=== PATIENT | male | born 1945 | race Caucasian/White ===

== ENCOUNTER 2018-06-13 06:43 | Day surgery (SDC) | payer MEDICARE ==
[~2018-06-13] VITALS: Ht 182.9 cm; Wt 102.1 kg
[2018-06-13 08:29] VITALS: BP 119/60
== END 2018-06-13 08:45 | disposition home or self-care (01) ==
LOC: ENDO 06:43
PROVIDERS: ATTEND Surgery
PROC: 0DJD8ZZ Inspection of Lower Intestinal Tract, Via Natural or Artificial Opening Endoscopic (ICD-10-PCS; principal; 2018-06-13)
DX: Z12.11 Encounter for screening for malignant neoplasm of colon (principal); K64.4 Residual hemorrhoidal skin tags; Q43.8 Other specified congenital malformations of intestine; K57.30 Diverticulosis of large intestine without perforation or abscess without bleeding; I10 Essential (primary) hypertension; Z85.828 Personal history of other malignant neoplasm of skin

== ENCOUNTER 2022-12-09 07:22 | Day surgery (SDC) | payer MEDICARE ==
[~2022-12-09] VITALS: Ht 182.9 cm; Wt 97.5 kg
[~2022-12-09 07:22] MED LIST: METOPROL TAR25 MG PO; ROSUVASTATIN CAL5 MG PO; SILDENAFIL50 M1 PO
[2022-12-09 09:14] VITALS: BP 129/76
== END 2022-12-09 09:35 | disposition home or self-care (01) ==
LOC: ORM 07:22
PROVIDERS: ATTEND Urology
PROC: 0VB03ZX Excision of Prostate, Percutaneous Approach, Diagnostic (ICD-10-PCS; principal; 2022-12-09)
DX: C61 Malignant neoplasm of prostate (principal); N40.1 Benign prostatic hyperplasia with lower urinary tract symptoms; N13.8 Other obstructive and reflux uropathy; I10 Essential (primary) hypertension; E78.5 Hyperlipidemia, unspecified; Z87.891 Personal history of nicotine dependence
CPT/HCPCS: J1956